=== PATIENT | male | born 1955 | race Caucasian/White ===

== ENCOUNTER → 2017-06-26 | Outpatient (CLI) | payer OTHER | LOC: BHFA 09:30 | PROVIDERS: ATTEND Internal Medicine Interventional Cardiology | DX: I25.10 Atherosclerotic heart disease of native coronary artery without angina pectoris (principal) | CPT/HCPCS: 78452; 93017; A9500; J2785 ==

== ENCOUNTER → 2017-10-15 | Outpatient (CLI) | payer OTHER | LOC: FIMAGING 18:47 | PROVIDERS: ATTEND Orthopaedic Surgery Hand Surgery | DX: M48.02 Spinal stenosis, cervical region (principal); G56.03 Carpal tunnel syndrome, bilateral upper limbs ==

== ENCOUNTER → 2017-12-01 | Outpatient (CLI) | payer OTHER | LOC: FIMAGING 16:18 | PROVIDERS: ATTEND Neurological Surgery | DX: M50.321 Other cervical disc degeneration at C4-C5 level (principal); Z98.1 Arthrodesis status ==

== ENCOUNTER → 2018-02-09 | Outpatient (CLI) | payer OTHER ==
[2018-02-09 11:39] LABS: PLATELET COUNT 126 10^3/uL (150-400)
--- NOTE | 2018-02-11 09:12 | CPEKG ---
Heart Rate: 91 RR Interval: 659 P-R Interval: 144 QRSD Interval: 92 QT Interval: 356 QTC Interval: 439 P [place]: 66 QRS [place]: 25 T Wave [place]: 19 EKG Severity - ABNORMAL ECG - EKG Impression: SINUS RHYTHM EKG Impression: INFERIOR INFARCT, AGE INDETERMINATE Electronically Signed For: Blake Jay 11-Feb-2018 09:13:21
== END ==
LOC: FPAT 11:00 → EDSTATUS 02-22 09:30
PROVIDERS: ATTEND Neurological Surgery
DX: Z01.810 Encounter for preprocedural cardiovascular examination (principal); Z01.812 Encounter for preprocedural laboratory examination

== ENCOUNTER 2018-03-23 09:29 | Inpatient (IN) | payer OTHER, MEDICAID ==
[2018-03-23] MEDS ORDERED: ASPIRIN 81 MG CHEWABLE TAB PO ONE ×2 (09:37→09:43)
--- NOTE | 2018-03-23 09:40 | EDPHY ---
H & P Time Seen by Provider: 03/23/18 09:36 HPI/ROS: Chief Complaint: Chest tightness, shortness of breath HPI: A 63-year-old male began having chest tightness about an hour ago with some associated shortness of breath and a headache. Patient states he woke up normal this morning. He does have a history of coronary disease and had a single cardiac stent placed about 10 years ago. Last was seen by his potato chip sorter within the last 3 months who performed a preop checkup for a yet to be planned neck surgery. Patient has been in his usual state of health. Patient states that the pain started after received a phone call from his civil attorney informing him that he had a court appointment at 9 o'clock this morning. He denies any fevers or chills. At worst a chest tightness is a 3/ 10. It was almost gone at this point. No aggravating or alleviating factors. Headache came on gradually, is not the worst headache of his life. No cough. Does not have a history of COPD or smoking cigarettes. ROS: 10 point Review of Systems is negative except as noted in the HPI. PMH: Head injury, coronary artery disease, hyperlipidemia, chronic neck and back pain Social History: No smoking, no alcohol, occasional marijuana Family History: Has a positive family history of coronary artery disease Physical Exam: Gen: Awake, Alert, anxious appearing, no respiratory distress HEENT: Nose: no rhinorrhea Eyes: PERRLA, EOMI Mouth: Moist mucosa Neck: Supple, no JVD Chest: nontender, lungs clear to auscultation Heart: S1, S2 normal, no murmur Abd: Soft, non-tender, no guarding Back: no CVA tenderness, no midline tenderness Ext: no edema, non-tender Skin: no rash Neuro: CN II-XII intact, Sensation grossly intact, Strength 5/5 in bilateral upper and lower extremities - Personal History Tetanus Vaccine Date: WITHIN 10 YRS - Medical/Surgical History Hx Diabetes: No Hx Cardiac Disease: Yes Other PMH: TBI, CAD, HIGH CHOLESTEROL, TX WITH STENT PLACEMENT, ORTHO SURG, PROSTATE SURG/TURP,occasional dental problems - Social History Smoking Status: Former smoker Constitutional: Initial Vital Signs Temperature (C) 37.0 C 03/23/18 09:30 Heart Rate 87 03/23/18 09:30 Respiratory Rate 18 03/23/18 09:30 Blood Pressure 153/87 H 03/23/18 09:30 O2 Sat (%) 91 L 03/23/18 09:30 O2 Delivery Mode Room Air O2 (L/minute) 2 Allergies/Adverse Reactions: No Known Allergies Allergy (Unverified 03/23/18 09:36) Home Medications: Medication Instructions Recorded Rosuvastatin Calcium [Crestor 10mg 10 mg PO DAILY 10/27/12 (RX)] Dextroamphetamine/Amphetamine 25 mg PO DAILY 08/18/14 [Adderall Xr 25 mg Capsule] Diazepam [Valium 10 MG (*)] 10 mg PO HS PRN 04/05/15 Herbals/Supplements -Info Only 1 ea PO DAILY 02/01/18 Multivitamins [Multivitamin (*)] 1 each PO DAILY 02/01/18 Omeprazole 40 mg PO DAILY18 02/01/18 Testosterone IM [Testosterone 4 ml IM MO 02/01/18 100mg/ml IM inj (*)] Tadalafil DAILY 02/02/18 Medical Decision Making - Diagnostics EKG Interpretation: ECG time 9:40 a.m., sinus rhythm with a rate of 77, there are Q-waves indicating an old inferior infarct, no acute ST or T-wave changes. Intervals are normal. The ECG is unchanged compared to February 09, 2018. ED Course/Re-evaluation: 63-year-old male with a history of coronary disease presenting with chest tightness and shortness of breath this morning. Patient is no acute changes on his ECG but does have evidence for old inferior infarction. He does have an elevation of his troponin which is not 3 times greater than reference range. This gives him a Heart Score of 4, 1.4 moderately suspicious history, 1 point for age, 1 point for 2 risk factors, and 1 point for elevated troponin which is not 3 times greater than the normal limit. Given the score of 4 he is appropriate for inpatient further evaluation workup for acute coronary syndrome. I have paged the hospitalist. He has received 325 mg of aspirin here. I have discussed with Swathi Alaniz, hospitalist. Will admit to the PCU under Dr. Noel for further evaluation. - Data Points Laboratory Results: Laboratory Results 03/23/18 09:45 03/23/18 09:45 03/23/18 03/23/18 09:45 09:45 WBC 7.06 10^3/uL 10^3/uL (3.80-9.50) RBC 3.56 10^6/uL L 10^6/uL (4.40-6.38) Hgb 12.2 g/dL L g/dL (13.7-17.5) Hct 36.5 % L % (40.0-51.0) MCV 102.5 fL H fL (81.5-99.8) MCH 34.3 pg H pg (27.9-34.1) MCHC 33.4 g/dL g/dL (32.4-36.7) RDW 13.3 % % (11.5-15.2) Plt Count 114 10^3/uL L 10^3/uL (150-400) MPV 11.6 fL fL (8.7-11.7) Neut % (Auto) 63.6 % % (39.3-74.2) Lymph % (Auto) 22.5 % % (15.0-45.0) Turner % (Auto) 10.3 % % (4.5-13.0) Eos % (Auto) 2.1 % % (0.6-7.6) Baso % (Auto) 1.1 % % (0.3-1.7) Nucleat RBC Rel Count 0.0 % % (0.0-0.2) Absolute Neuts (auto) 4.48 10^3/uL 10^3/uL (1.70-6.50) Absolute Lymphs (auto) 1.59 10^3/uL 10^3/uL (1.00-3.00) Absolute Monos (auto) 0.73 10^3/uL 10^3/uL (0.30-0.80) Absolute Eos (auto) 0.15 10^3/uL 10^3/uL (0.03-0.40) Absolute Basos (auto) 0.08 10^3/uL 10^3/uL (0.02-0.10) Absolute Nucleated RBC 0.00 10^3/uL 10^3/uL (0-0.01) Immature Gran % 0.4 % % (0.0-1.1) Immature Gran # 0.03 10^3/uL 10^3/uL (0.00-0.10) Sodium 143 mEq/L mEq/L (135-145) Potassium 4.1 mEq/L mEq/L (3.3-5.0) Chloride 107 mEq/L mEq/L (97-110) Carbon Dioxide 25 mEq/l mEq/l (22-31) Anion Gap 11 mEq/L mEq/L (8-16) BUN 20 mg/dL mg/dL (7-23) Creatinine 0.9 mg/dL mg/dL (0.7-1.3) Estimated GFR > 60 Glucose 104 mg/dL H mg/dL (70-100) Calcium 9.0 mg/dL mg/dL (8.5-10.4) Troponin I 0.089 ng/mL H ng/mL (0.000-0.034) Medications Given: Discontinued Medications Aspirin (Aspirin) 324 mg PO EDNOW ONE Stop: 03/23/18 09:38 Last Admin: 03/23/18 09:46 Dose: Not Given Aspirin (Aspirin) 243 mg PO EDNOW ONE Stop: 03/23/18 09:44 Last Admin: 03/23/18 09:45 Dose: 243 mg Departure - Departure Disposition: [facility] Inpatient Acute Clinical Impression: Chest pain Condition: Fair Referrals: Brittney Key MD [Primary Care Provider] - As per Instructions
--- NOTE | 2018-03-23 09:42 | CPEKG ---
Heart Rate: 77 RR Interval: 779 P-R Interval: 148 QRSD Interval: 90 QT Interval: 356 QTC Interval: 403 P [place]: 50 QRS [place]: -4 T Wave [place]: 8 EKG Severity - ABNORMAL ECG - EKG Impression: SINUS RHYTHM EKG Impression: INFERIOR INFARCT, AGE INDETERMINATE Electronically Signed By: Juan Antonio Harris 23-Mar-2018 14:40:51
[2018-03-23 09:52] LABS: PLATELET COUNT 114 10^3/uL (150-400)
[2018-03-23] MEDS ORDERED: LORazepam 2 MG/ML INJ IVP ONE (11:38)
[2018-03-23] MEDS ORDERED: LORazepam 2 MG/ML INJ ONE (11:40)
[2018-03-23] MEDS ORDERED: CARBOXYMETHYLCELLULOSE 1% 0.4 ML DROPERETTE EACHEYE PRN (14:16)
[2018-03-23] MEDS ORDERED: DIAZEPAM 10 MG TAB PO PRN (14:16)
--- NOTE | 2018-03-23 14:23 | PDGENHP ---
History and Physical History and Physical: CC: Chest pain HISTORY: This patient is sent for admission from the emergency room in [place], after presenting with chest pain and having a mild elevation of cardiac troponin. He has a history of myocardial infarction in 2006 with a stent placed at [facility] at that time by Dr. Lewis. It sounds like he has not had any angiogram since then. Notably he does continue to take aspirin and statin and does not use tobacco but some occasional marijuana. He tells me that he has been having now for few months some exertional angina symptoms with his typical chest discomfort and dyspnea mimicking his original [place] symptoms. This is a tightness in the chest radiating in the left arm with a vague abnormal sensation adjacent to the right side of his head. However this morning he had nonexertional and the that lasted quite a while. He presented eventually to [facility] Emergency room and was found to have a minimally elevated cardiac troponin and is sent here for further assessment. At this time his symptoms of angina have resolved. However he is feeling very anxious. He has had no changes in medication, no other recent illnesses or injuries. ROS: A comprehensive 10 system review revealed no other significant findings PAST MEDICAL HISTORY: Coronary disease with myocardial infarction and stent placement 2006 Anxiety disorder Erectile dysfunction FAMILY MEDICAL HISTORY: SOCIAL HISTORY: lives with his in [place] Is the martial artist No tobacco but occasional use of marijuana MEDICATIONS: The patients list has been reconciled by our clinical pharmacist in the EMR. Medicines the have held from his home list at this time for his acute episode include testosterone, Cialis, albuterol, Aleve, and some herbs PHYSICAL EXAMINATION: Vital Signs: All in normal range so far Commutator Repairer: Sinus Examination: General: alert, oriented, good mentation, relaxed Skin: warm, dry, good color, no rash HEENT: normal Neck: no mass or jvd Resps: relaxed Lungs: clear breath sounds Heart: regular, no murmur Abdomen: soft, nondistended, nontender, +BS, no mass Upper Extremities: normal Lower Extremities: no edema, warm No Bleeding or bruising Neurologic: normal speech/language, normal vaccinator, no focal weakness IV site: looks normal LABORATORY DATA: Mild macrocytic anemia with hemoglobin 12 otherwise unremarkable CBC 1st troponin 0.089, glucose 104 otherwise normal basic metabolic panel RADIOLOGY STUDIES: No studies done yet 12 LEAD EKG: My interpretation tracing, sinus rhythm, inferior Q-waves and nonspecific inferior T-wave abnormalities are noted, nothing that appears acute ASSESSMENT: # NSTEMI/UNSTABLE ANGINA WITH MILD TROPONIN ELEVATION # KNOWN HISTORY OF CORONARY ARTERY DISEASE WITH PREVIOUS STENTING # ANXIETY DISORDER PLANS: -observation status on Cardiac Unit -I reviewed his current situation with Dr. Hunter Lewis and Annie Shay at this time in detail -it seems that coronary angiography for further assessment will be prudent await Dr. Lewis assessment -he has had high-dose aspirin today will continue daily aspirin and statin at this time -depending on plans for angiography now or not, will consider adding beta- lizzie and heparin to keep things quite until he is study to -cardiac monitoring here I have reviewed the patient's case in detail with Dr. Annie Shay I have reviewed the patient's past medical records as part of this assessment, including
--- NOTE | 2018-03-23 15:19 | ASMTCMCOM ---
CM Note CM Note Notes: 03/23/2018 Case Management Note Reviewed chart. Pt was admitted for chest pain and subsequent work up. Pt is employed and has a significant other. There are no PT or OT evals ordered at this time. Case Management d/c poc: to be determined. Case Management to follow. Date Signed: 03/23/2018 03:18 PM Electronically Signed By:Talia Moreno RN
[2018-03-23] MEDS ORDERED: ACETAMINOPHEN 325 MG TAB PO PRN (15:46)
[2018-03-23] MEDS ORDERED: NITROGLYCERIN 0.4 MG BTL SL PRN (15:46)
[2018-03-23] MEDS ORDERED: TEMAZEPAM 15 MG CAP PO PRN (15:46)
--- NOTE | 2018-03-23 16:56 | GCON ---
[f rep st] CONSULTATION DATE OF CONSULTATION: 03/23/2018 REQUESTING PHYSICIAN: Dr. Gaston Noel. REASON FOR CONSULTATION: Unstable angina. HISTORY: The patient is a 63-year-old male, well known to me from over 10 years of outpatient care. He has a history of CAD with a prior inferior ST- segment elevation myocardial infarction in 2006 which was treated with PCI of the RCA. He has been stable since that time without recurrent ischemic episodes or need for repeat revascularization procedures. I last saw him in April of 2016. At that time, he was stable without significant symptoms. Today , he received an marketing professor phone call from his collections attorney who also happens to be his employer. He received a message regarding a court appointment scheduled for 9:00. Initially, he thought this was in relation to his work assignment. However, he soon realized that this was a court appointment regarding issues between himself and his ex-. He experienced a great deal of stress. He began to experience chest discomfort. When his symptoms persisted, he decided to seek evaluation in the emergency room. Eventually, his symptoms subsided spontaneously. In the ER, his initial ECG did not demonstrate any acute ischemic findings. His initial troponin is minimally elevated at 0.089. As I visit with him this afternoon, he is symptom free. PAST CARDIAC HISTORY AND TESTING: As mentioned, he had an inferior ST-segment elevation myocardial infarction in November of 2006. That episode of care took place at [facility]. His cardiac catheterization demonstrated overall preserved left ventricular systolic function. He had an acute thrombotic occlusion of the RCA which was treated with PCI and placement of a single 3.5 x 16 mm Taxus drug coated stent. He also had a chronic total occlusion of the proximal LAD with extremely vigorous [id number] and left-to- left collaterals. Approximately 1 month later, he underwent a repeat catheterization and attempt to perform PCI on the chronic total occlusion of the left anterior descending. That procedure was unsuccessful. In light of his asymptomatic status, the decision was made to manage him medically as opposed to sending him for bypass surgery. He has done extremely well. His last ischemic assessment consists of a Lexiscan nuclear stress test performed in June of 2017. That study demonstrated a fixed inferior defect and a moderate area of apical reversible ischemia. PAST MEDICAL HISTORY: In addition to his coronary disease, benign prostatic hypertrophy, depression, gastroesophageal reflux, hyperlipidemia, spinal stenosis, and traumatic brain injury. SURGICAL HISTORY: Includes cervical fusion, shoulder surgery, tonsillectomy, and TURP. FAMILY HISTORY: His father had coronary disease. MEDICATIONS: Please refer to the medication reconciliation section of the electronic chart. Relevant cardiac medications include aspirin and rosuvastatin. ALLERGIES: No known drug allergies. SOCIAL HISTORY: He is . He has a significant other with him in his room today. He has adult offspring. He is a former smoker, having stopped in 1989. He does not consume alcohol. REVIEW OF SYSTEMS: Apart from the chest discomfort that prompted this hospital encounter, a 10-point review was negative. PHYSICAL EXAMINATION: VITAL SIGNS: Heart rate in the 70s with sinus rhythm on the monitor. Blood pressure 125/83. GENERAL: This is a well-developed, well- nourished male in no acute distress. He is alert and oriented x3. HEAD AND NECK: No scleral icterus. Mucous membranes moist. Carotid pulses 2+ without bruits. There is no JVD. CHEST: Lung gamez clear to auscultation. CARDIAC: Regular rate and rhythm with a normal S1, S2. There is no murmur or gallop. ABDOMEN: Soft, nontender, nondistended, with normal bowel sounds. EXTREMITIES : 2+ pulses and no peripheral edema. An Nicolas test on the right wrist was normal at less than 5 seconds. LABORATORY STUDIES: Sodium 143, potassium 4.1, BUN and creatinine 20 and 0.9. Troponin is 0.089. His CBC demonstrates a white blood cell count of 7.06 with hemoglobin and hematocrit of 12.2 and 36.5. Platelet count is 114,000. ECG: His ECG demonstrates normal sinus rhythm. There are inferior Q-waves, consistent with his previous [place]. There are no conduction system disturbances. There are no ST-T-wave changes suggestive of ischemia. IMPRESSION: This is a 63-year-old male who presents with acute onset anginal quality chest discomfort that arose in the context of emotional upset. He is currently pain free. His ECG does not demonstrate any acute ischemic changes. However, his troponin is minimally elevated. He has not had a repeat heart catheterization since his original presentation in 2006. Over the years, nuclear stress tests have demonstrated his fixed inferior infarct zone, along with a focus of apical ischemia, likely related to his collateralized left anterior descending. PLAN: The patient will be observed overnight. He will have serial troponin levels. At this point, the plan is to proceed with diagnostic cardiac catheterization and possible PCI tomorrow. /[id number]/MODL MTDD
[2018-03-23] MEDS: PANTOPRAZOLE SODIUM 40 MG TAB PO SCH (17:53)
[2018-03-23] MEDS ORDERED: NON-FORMULARY NEW DRUG (Omeprazole [Omeprazole] 40 MG) PO SCH (18:00)
[2018-03-23] MEDS: DIAZEPAM 5 MG TAB PO PRN (22:32)
[2018-03-24] MEDS ORDERED: diphenhydrAMINE 25 MG CAP PO ONE ×2 (06:00→10:18)
[2018-03-24] MEDS ORDERED: DIAZEPAM 5 MG TAB PO ONE (06:00)
[2018-03-24] MEDS ORDERED: FAMOTIDINE 20 MG TAB PO ONE (06:00)
--- NOTE | 2018-03-24 09:06 | CPEKG ---
Heart Rate: 69 RR Interval: 870 P-R Interval: 148 QRSD Interval: 90 QT Interval: 396 QTC Interval: 425 P [place]: 50 QRS [place]: -2 T Wave [place]: 11 EKG Severity - ABNORMAL ECG - EKG Impression: SINUS RHYTHM EKG Impression: INFERIOR INFARCT, AGE INDETERMINATE Electronically Signed By: Howard Ford 24-Mar-2018 11:58:00
[2018-03-24] MEDS ORDERED: DIAZEPAM 5 MG TAB ONE (10:19)
[2018-03-24] MEDS ORDERED: FAMOTIDINE 20 MG TAB ONE (10:19)
[2018-03-24] MEDS: ASPIRIN 81 MG CHEWABLE TAB PO SCH (10:21)
[2018-03-24] MEDS ORDERED: LIDOCAINE 1% 300 MG/30 ML SDV ONE (10:56)
[2018-03-24] MEDS ORDERED: MIDAZOLAM 2 MG/2 ML VIAL ONE ×2 (10:57→13:11)
[2018-03-24] MEDS ORDERED: IOPAMIDOL (ISOVUE-370) 150 ML BTL IV ONE (10:57)
[2018-03-24] MEDS ORDERED: VERAPAMIL 5 MG/2 ML VIAL ONE (10:57)
[2018-03-24] MEDS ORDERED: fentaNYL 100 MCG/2 ML INJ ONE (10:57)
[2018-03-24] MEDS ORDERED: HEPARIN 10,000 UNIT/10 ML MDV (1,000 UNIT/ML) ONE (10:57)
--- NOTE | 2018-03-24 12:43 | PDHPUP ---
History & Physical Update H&P update statement: This history and physical update is based on an assessment of the patient which was completed after admission or registration (within 24 hours), but prior to the surgery/procedure. H&P update: H&P reviewed & patient examined, no change in patient's condition since H&P completed
--- NOTE | 2018-03-24 12:43 | PDPROPOC ---
Sedation Plan of Care Sedation Plan of Care: vital signs stable, mental status noted, patient educated of risks, benefits, alternatives, patient can tolerate sedation ASA Classification: ASA 2 Planned drugs: fentanyl, midazolam Mallampati Score: Class 2 Mallampati Reference Image: Patient passed 3-3-2 rule?: Yes
[2018-03-24] MEDS ORDERED: HYDROCODONE/APAP 5/325 TAB PO PRN (14:13)
[2018-03-24] MEDS ORDERED: ATROPINE SULFATE 1 MG/10 ML SYR IVP PRN (14:13)
[2018-03-24] MEDS ORDERED: ONDANSETRON 4 MG/2 ML VIAL IVP PRN (14:13)
--- NOTE | 2018-03-24 14:21 | PDDXCAT ---
Diagnostic Cath Note - . Date: 03/24/18 Front End Engineer: Joshua Indication: other (1)Unstable angina with mild troponin eleavation. 2) Known CAD.) - Procedure Access: right wrist Procedure: left heart catheterization, coronary angiography, left ventriculogram , other (Attemtped PCI of RCA) - Materials Left Heart Cath size: 5F Left Heart Cath materials: other (TIG and Pigtail) - Findings-Left Heart Catheterization LM: Normal. LAD: Mid-LAD 100% with kwfy-tr-ally collaterals. LCX: Mid-circumflex 50%. RCA: Flouroscopy reveals the presence of a previously placed stent in the proximal RCA. Angiography demonstrates the stent is widely patent. There is diffuse mild to moderate plaque throughout the RCA. The ostium of the posterior descending branch has a focal 90+% stenosis. LVEF: 50% Wall motion: Inferobasilar akinesis. Estimated blood loss: <50ml Closure method: TR Band Assessment: 1) Low normal LVEF with inferobasilar akinesis from [place] in 2006. 2) CAD as described above. Plan: Will ask CT surgery service to consult for CABG. Intervention: Based on the patient's clinical history and diagnostic angiography, the decision was made to attempt PCI of the ostial stenosis in the posterior descending branch. The patient received 2500 units of intravenous heparin in addition to the 5,000 units that had been given at the beginning of the procedure. A 6 Indian HockeyStick guide catheter was advanced to the RCA ostium. Multiple attempts were made at passing a guidewire into the posterior descending branch. An Intuition guidewire and Run-Through guidewire were both tried with reshaping of the tip of the wire several times each. The posterior descending branch could not be accessed and the procedure was terminated. Patient Problems: Problems Problem Status Onset Chest pain Acute
--- NOTE | 2018-03-24 15:56 | ASMTCMCOM ---
CM Note CM Note Notes: 03/24/2018 Case Management Note Discussed pt during rounds this morning. Pt has heart cath this afternoon that found significant blockages that they were unable to stent. Dr. Carlisle to see pt to discuss surgical options for treatment. Case Management d/c poc: to be determined. Case Management to follow. Date Signed: 03/24/2018 03:55 PM Electronically Signed By:Talia Moreno RN
[2018-03-24] MEDS: VITAMIN B COMPLEX 1 EA CAP/TAB PO SCH (16:22)
[2018-03-24] MEDS: FOLIC ACID 1 MG TAB PO SCH (16:22)
[2018-03-24] MEDS: MULTIVITAMINS 1 EACH TAB PO SCH (16:22)
[2018-03-24] MEDS: GLUCOSAMINE/CHONDROITIN CAP PO SCH (16:22)
[2018-03-24] MEDS: OMEGA-3 FATTY ACIDS 1,000 MG CAP PO SCH (16:22)
[2018-03-24] MEDS: ROSUVASTATIN CALCIUM 10 MG TAB PO SCH (16:22)
--- NOTE | 2018-03-24 18:01 | HOSPPROG ---
Hospitalist Progress Note Assessment/Plan: DIAGNOSES: -NSTEMI -CAD with progression noted on angiography, multiple vessels involved -unable to pass stent through ostial lesion in the manufacturing laborer today -mild macrocytic anemia on CBC I reviewed with Dr. Lewis in detail after angiography. The patient has significant myocardium at risk but technically could not be stented today in the manufacturing laborer. There actually is anatomy potentially amenable to with triple bypass surgery so the current plan is to obtain surgical consultation at this time. I reviewed the case with Dr. Henriquez as well and he will see the patient this evening PLANS: -continue aspirin and statin -consultation with Dr. Hunter Henriquez of surgery -will check B12 and folate levels with his anemia SUBJECTIVE: No recurrent angina here today so far No shortness of breath No other new symptoms OBJECTIVE Vitals reviewed: Stable overall here so far Canvas Worker, my review: Sinus rhythm Exam: alert oriented skin warm dry color ok resps not labored lungs clear BSs heart regular abd soft nondistended nontender, bowel sounds present limbs warm, no edema iv site ok Lab data: He has adequate control of his LDL in the 50s Objective: Vital Signs Temp Pulse Resp BP Pulse Ox 36.2 C 73 15 125/82 H 90 L 03/24/18 07:38 03/24/18 16:00 03/24/18 16:00 03/24/18 16:00 03/24/18 16:00 Laboratory Results 03/24/18 03:27 03/23/18 03/24/18 03/25/18 06:59 06:59 06:59 Intake Total 720 Balance 720 - Time Spent With Patient Time Spent with Patient: greater than 35 minutes Time Spent with Patient: Greater than 35 minutes spent on this patients care, greater than 50% of time spent counseling, educating, and coordinating care regarding the above mentioned plan. ICD10 Worksheet Patient Problems: Problems Problem Status Onset Chest pain Acute
--- NOTE | 2018-03-24 18:27 | GCON ---
[f rep st] CONSULTATION DATE OF CONSULTATION: 03/24/2018 REFERRING PHYSICIAN: Hunter Lewis MD REASON FOR CONSULTATION: Patient is seen at the request of Dr. Lewis with the patient's becky n. IMPRESSION: 1. Non-Q-wave infarction with severe 3-vessel disease and moderate LV dysfunction. 2. Anxiety disorder. 3. Erectile dysfunction. RECOMMENDATIONS: This gentleman should undergo coronary artery revascularization on this admission. He has unstable angina with mild elevation of troponin on admission. He was found to have severe 3- vessel disease at cath today. Please see cath report. Previous medical history is positive for cherelle te myocardial infarction in 2006, at which time, he had a stent. He does have a strong family histor y and denies any other significant risk factors. REVIEW OF SYSTEMS: Otherwise unremarkable. SOCIAL HISTORY: He works in security. He is , or has a partner whom he lives with in [facility]. He does not smoke. MEDICATIONS: On admission: Please see admission H and P for medications. PHYSICAL EXAMINATION: GENERAL: This is a well-developed, middle-aged gentleman lying comfortably in bed post cath. No apparent distress. HEENT: Normocephalic. PERRLA. EOMI. NECK: Without bruit, adenopathy, thyromegaly. HEART: Rate is regular without murmur, S3 or S4. LUNGS: Clear. ABDOMEN : Soft, nontender. Bowel sounds are active. RECTAL/GENITAL: Exams were deferred. NEUROLOGICAL: He is grossly intact. Moves all extremities to command. Pedal pulses are 2+ and symmetrical. DIAGNOSTICS: Please see cath report for details. Carotid studies are pending. PLAN: Proceed with coronary bypass grafting in the morning. /[id number]/MODL
[2018-03-24] MEDS: PANTOPRAZOLE SODIUM 40 MG TAB PO SCH (19:11)
--- NOTE | 2018-03-24 20:40 | PDMN ---
Medical Necessity Medical necessity: Pt meets INPT criteria per MD as of 03/24/18 and MCG M-[id number] [place] (NSTEMI with severe 3-vessel disease; CABG pending).
[2018-03-24] MEDS: CHLORHEXIDINE GLUC HIBICLENS 118 ML BTL TP SCH (20:45)
[2018-03-24] MEDS: DIAZEPAM 5 MG TAB PO PRN (23:29)
[2018-03-25] MEDS ORDERED: SODIUM BICARBONATE 20 MEQ, LIDOCAINE 1% 10 ML in NORMOSOL-R 1,000 ML MISC ONE (06:00)
[2018-03-25] MEDS ORDERED: MUPIROCIN 2% 22 GM OINT NS ONE (06:00)
[2018-03-25] MEDS ORDERED: ceFAZolin 2 GM/DEXTROSE 100 ML IV ONE (06:00)
[2018-03-25] MEDS ORDERED: MANNITOL 25% 12.5 GM/50 ML VIAL IVP ONE (06:00)
[2018-03-25] MEDS ORDERED: AMINOCAPROIC ACID 5 GM/20 ML VIAL IV ONE (06:00)
[2018-03-25] MEDS ORDERED: CITRATE DEXTROSE SOLN 500 ML BAG MISC ONE (06:00)
[2018-03-25] MEDS ORDERED: INSULIN REGULAR HUMAN 100 UNIT in NS 100 ML IV ONE (06:00)
[2018-03-25] MEDS ORDERED: PHENYLEPHRINE HCL 50 MG in NS 250 ML IV ONE (06:00)
[2018-03-25] MEDS ORDERED: VERAPAMIL 5 MG, NITROGLYCERIN 2.5 MG, HEPARIN 500 UNIT, SODIUM BICARBONATE 0.2 MEQ in L... MISC ONE (06:00)
[2018-03-25] MEDS ORDERED: niCARdipine/NACL 200 ML IV SCH (06:00)
[2018-03-25] MEDS ORDERED: NOREPINEPHRINE BITARTRATE 16 MG in NS 250 ML IV ONE (06:00)
[2018-03-25] MEDS ORDERED: PROTAMINE SULFATE 50 MG/5 ML VIAL IVP ONE (06:27)
[2018-03-25] MEDS ORDERED: MILRINONE/DEXTROSE/100 ML BAG IV ONE (06:28)
[2018-03-25] MEDS ORDERED: HEPARIN 10,000 UNIT/10 ML MDV (1,000 UNIT/ML) ONE ×2 (06:28→06:30)
[2018-03-25] MEDS ORDERED: DOPamine/DEXTROSE/250 ML BAG IV ONE (06:28)
[2018-03-25] MEDS ORDERED: NA BICARBONATE 50 MEQ/50 ML VIAL ONE (06:28)
[2018-03-25] MEDS ORDERED: CALCIUM CHLORIDE 1 GM/10 ML INJ ONE ×2 (06:28→06:30)
[2018-03-25] MEDS ORDERED: ADENOSINE 6 MG/2 ML VIAL ONE (06:29)
[2018-03-25] MEDS ORDERED: AMIODARONE HCL 150 MG/3 ML VIAL ONE ×2 (06:29→06:31)
[2018-03-25] MEDS ORDERED: ceFAZolin 1 GM VIAL ONE (06:29)
[2018-03-25] MEDS ORDERED: NITROGLYCERIN/D5W 50 MG/250 ML BOTTLE IV ONE (06:29)
[2018-03-25] MEDS ORDERED: niCARdipine/NACL/200 ML BAG IV ONE (06:29)
[2018-03-25] MEDS ORDERED: LIDOCAINE 2% 100 MG/5 ML SYR ONE (06:30)
[2018-03-25] MEDS ORDERED: ALBUMIN 5% 250 ML BOTTLE IV ONE (06:30)
[2018-03-25] MEDS ORDERED: methylPREDNISolone SOD SUCC 1 GM/8 ML VIAL ONE (06:31)
[2018-03-25] MEDS ORDERED: CITRATE DEXTROSE SOLN 500 ML BAG ONE (06:31)
[2018-03-25] MEDS ORDERED: MAGNESIUM SULFATE 1 GM/2 ML VIAL ONE (06:31)
[2018-03-25] MEDS ORDERED: VERAPAMIL 5 MG/2 ML VIAL ONE (06:43)
[2018-03-25] MEDS ORDERED: PAPAVERINE HCL 60 MG/2 ML SDV ONE (06:43)
[2018-03-25] MEDS ORDERED: MINERAL OIL 10 ML VIAL ONE (06:43)
[2018-03-25] MEDS ORDERED: LR 1,000 ML IV ONE (06:44)
[2018-03-25] MEDS ORDERED: MIDAZOLAM 2 MG/2 ML VIAL IVP ONE (06:54)
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
[2018-03-25] MEDS ORDERED: fentaNYL 250 MCG/5 ML INJ ONE ×2 (07:09→10:02)
[2018-03-25] MEDS ORDERED: PROPOFOL/EMULSION 500 MG/50 ML BOTTLE IV ONE (07:10)
[2018-03-25] MEDS ORDERED: fentaNYL 100 MCG/2 ML INJ ONE ×3 (07:46→12:09)
[2018-03-25] MEDS ORDERED: DEXMEDETOMIDINE HCL 400 MCG in NS 100 ML IV ONE (12:00)
[2018-03-25] MEDS ORDERED: fentaNYL 100 MCG/2 ML INJ IVP PRN (12:26)
[2018-03-25] MEDS ORDERED: MEPERIDINE 25 MG/0.5 ML AMP IVP PRN (12:26)
[2018-03-25] MEDS ORDERED: CEPACOL LOZENGE PO PRN (12:26)
[2018-03-25] MEDS ORDERED: ONDANSETRON DISINTEGRATING 4 MG TAB PO PRN (12:26)
[2018-03-25] MEDS ORDERED: ACETAMINOPHEN 325 MG TAB PO PRN (12:26)
[2018-03-25] MEDS ORDERED: PANTOPRAZOLE SODIUM 40 MG VIAL IVP ONE (12:26)
[2018-03-25] MEDS ORDERED: METOCLOPRAMIDE 10 MG/2 ML VIAL IVP PRN (12:26)
[2018-03-25] MEDS ORDERED: ACETAMINOPHEN 650 MG SUPP PR PRN (12:26)
[2018-03-25] MEDS ORDERED: MAGNESIUM SULF 2 GM/WATER 50 ML IV ONE (12:26)
[2018-03-25] MEDS ORDERED: POTASSIUM Cl (KCl) 50 ML IV PRN (12:26)
[2018-03-25] MEDS ORDERED: POLYETHYLENE GLYCOL 3350 17 GM PKT PO PRN (12:26)
[2018-03-25] MEDS ORDERED: D50W 25 GM/50 ML SYR IVP PRN (12:26)
[2018-03-25] MEDS ORDERED: BISACODYL 10 MG SUPP PR PRN (12:26)
[2018-03-25] MEDS ORDERED: MAGNESIUM HYDROXIDE 30 ML UDCUP PO PRN (12:26)
[2018-03-25] MEDS ORDERED: SODIUM CL NASAL 45 ML BTL EACHNARE PRN (12:26)
[2018-03-25] MEDS ORDERED: ALBUMIN 5% 250 ML IV PRN (12:26)
[2018-03-25] MEDS ORDERED: LACTULOSE 20 GM/30 ML UDCUP PO PRN (12:26)
[2018-03-25] MEDS ORDERED: ONDANSETRON 4 MG/2 ML VIAL IVP PRN (12:26)
[2018-03-25] MEDS ORDERED: NS 1,000 ML IV SCH (12:30)
[2018-03-25] MEDS ORDERED: INSULIN REGULAR HUMAN 100 UNIT in NS 100 ML IV SCH (12:30)
[2018-03-25] MEDS ORDERED: PROPOFOL 200 MG/20 ML VIAL ONE (12:31)
[2018-03-25] MEDS ORDERED: SODIUM BICARBONATE 50 MEQ/50 ML SYR ONE (13:02)
[2018-03-25] MEDS ORDERED: LORazepam 2 MG/ML INJ ONE (13:12)
--- NOTE | 2018-03-25 13:13 | CPEKG ---
Heart Rate: 94 RR Interval: 638 P-R Interval: 144 QRSD Interval: 96 QT Interval: 368 QTC Interval: 461 P [place]: 72 QRS [place]: 67 T Wave [place]: 28 EKG Severity - ABNORMAL ECG - EKG Impression: SINUS RHYTHM EKG Impression: PROBABLE INFERIOR INFARCT, AGE INDETERMINATE Electronically Signed By: Howard Ford 25-Mar-2018 13:55:55
[2018-03-25] MEDS: FOLIC ACID 1 MG TAB PO SCH (13:20)
[2018-03-25] MEDS: ASPIRIN 81 MG CHEWABLE TAB PO SCH (13:20)
[2018-03-25] MEDS: ROSUVASTATIN CALCIUM 10 MG TAB PO SCH (13:21)
[2018-03-25] MEDS: OMEGA-3 FATTY ACIDS 1,000 MG CAP PO SCH (13:21)
[2018-03-25] MEDS: VITAMIN B COMPLEX 1 EA CAP/TAB PO SCH (13:21)
[2018-03-25] MEDS: MULTIVITAMINS 1 EACH TAB PO SCH (13:21)
[2018-03-25] MEDS: GLUCOSAMINE/CHONDROITIN CAP PO SCH (13:21)
--- NOTE | 2018-03-25 13:37 | GOP ---
[f rep st] OPERATIVE REPORT DATE OF OPERATION: 03/25/2018 SURGEON: Hunter Carlisle DO TRANSFORMER [employer]OP SUPERVISOR: Coby. ANESTHESIA: Arnold. PREOPERATIVE DIAGNOSIS: Non-Q-wave infarction with severe 3-vessel disease, moderate left ventricula r dysfunction. POSTOPERATIVE DIAGNOSIS: Non-Q-wave infarction with severe 3-vessel disease, moderate left ventricul ar dysfunction with evidence of severe mitral insufficiency with what appears to be A3 P3 prolapse. PROCEDURE PERFORMED: 1. Coronary bypass grafting x5 with the left internal mammary artery to the ramus, right internal ma mmary artery to the left anterior descending, saphenous vein graft to the 1st diagonal, saphenous vei n graft to the posterior lateral circumflex, and saphenous vein graft to the posterior descending art olvin. 2. Atrial clip to the left atrial appendage. 3. Complex mitral valve repair with advancement of the lateral commissure utilizing "Magic Stitch" a nd a #32 Physio annuloplasty ring. FINDINGS: Patient was noted to have unstable angina with troponin elevation. He underwent diagnosti c catheterization and noted to have severe 3-vessel disease. Please see cath report. Ventriculogram did not reveal any clear evidence of mitral insufficiency and no history of the same was noted. Intraoperatively, his transesophageal echo revealed moderate to severe mitral insufficiency with an a nteriorly directed jet likely emanating from A3 P3 commissure. There was also evidence of myxomatous valve degeneration and annular dilatation. I then obtained verbal consent from the patient's to proceed with repairing the mitral valve. DESCRIPTION OF PROCEDURE: Both mammaries were harvested. He was then heparinized, cannulated. Bypa ss was begun. A cardioplegic arrest was obtained with antegrade cardioplegia, retrograde cardioplegi a topical hypothermia, and systemic cooling. Initially, the left atrial appendage was ligated with a 35 mm atrial clip. We then proceeded with gr afting a 2.5 mm good quality posterolateral circumflex with as excellent vein graft, which was harves nica endoscopically from the left leg by Jamarcus Tenorio, who first assisted throughout the procedure. Th e proximal anastomosis was completed in the standard fashion. We then proceeded with grafting the ramus branch, which was a 2.5 mm good quality vessel with an exce llent quality left internal mammary artery brought through a lateral pericardial incision. This was tacked to the epicardium. We then proceeded with grafting the 1st large diagonal, which was a 2.4 mm vessel with excellent qual ity vein, which was brought off the ascending aorta. We then proceeded with grafting the PDA, which was a 2.8 mm vessel with excellent quality vein, savin g the proximal anastomosis until after completion of the mitral valve. We then exposed the mitral valve through the right superior pulmonary vein. The atrium was markedly enlarged. The valve appeared myxomatous and with distention had marked prolapse of the lateral commi ssure at A3 P3. There were no ruptured chordae and there appeared to be annular dilatation. Annulop lasty sutures were placed with 2-0 Tycron. We then retested the valve. We then performed two 5-0 Pr olene sutures at the lateral commissure to advance the commissure and reduce the prolapse and regurgi tation laterally. This did not compromise in-flow and upon distention, the regurgitation resolved. We then sized the patient for a 32 ring, which was sutured in place with Cor-Knots, again eliminating any regurgitation. The left atrium was closed in standard fashion. We then proceeded with doing the proximal right anastomosis off the ascending aorta and then brought the right internal mammary artery across the midline to the mid LAD without tension and grafted that there. Cross-clamp was then removed with suction on the ascending aortic vent. Spontaneous cardiac activity was noted to resume. The patient was easily weaned from bypass. Heparin was reversed with protamine. The cannula was removed and oversewn. Transesophageal echo confirmed no mitral regurgita tion with good coaptation and function and normal tricuspid. 2 ventricular pacing wires were placed. The thymic fat and pericardium were closed. Two pleural and 1 mediastinal drains were placed. The chest was closed in standard fashion. Patient was returned to ICU in stable condition. /[id number]/MODL
[2018-03-25] MEDS ORDERED: LORazepam 2 MG/ML INJ IV ONE ×2 (13:45)
[2018-03-25] MEDS ORDERED: SODIUM BICARBONATE 50 MEQ/50 ML SYR IV ONE (13:45)
[2018-03-25] MEDS ORDERED: HEPARIN 5,000 UNIT/0.5 ML INJ SC SCH (14:00)
[2018-03-25] MEDS: ceFAZolin 2 GM/DEXTROSE 100 ML IV SCH ×2 (14:06→21:35)
--- NOTE | 2018-03-25 14:45 | POSTANESTH ---
Post Anesthetic Evaluation Cardiovascular Status: Normal, Stable Respiratory Status: Requires Airway Assist Level of Consciousness/Mental Status: Moderately Sleepy Pain Control: Adequate, Prn Tx Ordered Nausea/Vomiting Control: Adequate, Prn Tx Ordered Complications Possibly Related to Anesthesia: None Noted
[2018-03-25] MEDS: PANTOPRAZOLE SODIUM 40 MG TAB PO SCH ×2 (17:44→21:18)
--- NOTE | 2018-03-25 17:56 | HOSPPROG ---
Hospitalist Progress Note Assessment/Plan: Patient seen by me today postoperatively in ICU. DIAGNOSES: -NSTEMI/CAD with progression noted on angiography, multiple vessels involved -now status post CABG x5 and mitral and tricuspid valve annuloplasty is -mild macrocytic anemia on CBC I reviewed with Dr. Lewis in detail after angiography. 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 There actually is anatomy potentially amenable to with triple bypass surgery so the current plan is to obtain surgical consultation at this time. I reviewed the case with Dr. Henriquez as well and he will see the patient this evening PLANS: -routine postop care per Cardiac surgery -B12 and folate levels are pending to further assess macrocytosis SUBJECTIVE: He is having the expected pain after surgery but otherwise doing well. No nausea. Breathing comfortably. He has had a stable postoperative course so far. 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, my review: Sinus rhythm Exam: alert oriented Looks to be in some degree of discomfort but in no distress skin warm dry color ok resps not labored Incision looks good, chest tubes in place with minimal output lungs slightly rhonchorous heart regular abd soft nondistended nontender, bowel sounds present limbs warm, no edema iv site ok Lab data: He has adequate control of his LDL in the 50s Objective: Vital Signs Temp Pulse Resp BP Pulse Ox 35.7 C L 89 24 H 122/57 H 89 L 03/25/18 16:00 03/25/18 17:00 03/25/18 17:00 03/25/18 17:00 03/25/18 17:00 Laboratory Results 03/24/18 03:27 03/24/18 03/25/18 03/26/18 06:59 06:59 06:59 Intake Total 720 Balance 720 ICD10 Worksheet Patient Problems: Problems Problem Status Onset Acute blood loss anemia Acute CAD (coronary artery disease) Acute Chest pain Acute Mitral valve regurgitation Acute S/P CABG x 5 Acute S/P mitral valve repair Acute
[2018-03-25] MEDS: CHLORHEXIDINE GLUC HIBICLENS 118 ML BTL TP SCH (19:45)
[2018-03-25] MEDS: MUPIROCIN 2% 22 GM OINT NS SCH (20:36)
[2018-03-25] MEDS: SENNOSIDES/DOCUSATE SODIUM TAB PO SCH (21:06)
[2018-03-25] MEDS ORDERED: NALOXONE HCL 0.4 MG/ML INJ IVP PRN (22:05)
[2018-03-25] MEDS ORDERED: HYDROmorphONE/DILAUDID 6 MG/30 ML PCA IV PRN (22:05)
[2018-03-25] MEDS ORDERED: KETOROLAC 30 MG/1 ML SDV IVP ONE (22:15)
[2018-03-26 03:07] LABS: PLATELET COUNT 98 10^3/uL (150-400)
[2018-03-26 03:19] LABS: INR 1.22 (0.83-1.16); PROTIME(PATIENT) 15.6 SEC (12.0-15.0)
--- NOTE | 2018-03-26 06:15 | SOAPPROG ---
SOAP Progress Note Assessment/Plan: Assessment: POD#1 urgent CABG x 5 (ESQUEDA-RI, ABBY-LAD, SV-D1, SV-PLC, SV-PDA), EVH , complex MV repair with a #32 Physio ring NSTEMI/progressive CAD - Patent RCA stent, unsuccessful PCI culprit PDA stenosis. Fully revascularized with CABG. Secondary prevention w ASA, BB as tolerated, and statin when eating well. ISCM - s/p remote inferobasilar NC. LVEF ~50%. Hemodynamically stable early postop course. No vasoactive support. No dysrhythmias. No sig volume overload. Staggered intro of heart failure meds as appropriate. 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 Antithrombotic prophylaxis with Coumadin, target INR 2-3, duration 3 mo. Acute on chronic anemia - Preop H/H . Expected surgical blood loss. No transfusions required. VTE prophylaxis with SQ hep until INR > 1.7. Postoperative pain - Exacerbated by BIMAs, bilat pleural tubes. Postop management with dilaudid HAND STITCHER. Transition to multimodal analgesia planned. Anticipate improved control once tubes out. Plan: Routine POD#1 orders re wires, drains, orals and mobility. Transition dilaudid HAND STITCHER to oral and bolus dilaudid prn. Start metoprolol 12.5 mg BID. Start coumadin 2.5 mg today. Probable tx to PCU later today. 03/26/18 06:19 Subjective: Hurts to move, hurts to talk. No dizziness or wobbliness getting OOB. No nausea. Objective: Vital Signs Temp Pulse Resp BP Pulse Ox 36.8 C 85 16 144/58 H 94 03/26/18 04:00 03/26/18 05:00 03/26/18 05:00 03/26/18 05:00 03/26/18 05:00 Laboratory Results 03/26/18 03:00 03/26/18 03:00 03/25/18 03/26/18 03/27/18 05:59 05:59 05:59 Intake Total 218.2 Output Total 1835 Balance -1616.8 PT 15.6 SEC (12.0-15.0) H 03/26/18 03:00 INR 1.22 (0.83-1.16) H 03/26/18 03:00 Extubated yest afternoon without incident. Moderate suppl O2 req sec to splinting. Started on dilaudid HAND STITCHER. Adequate diuresis. CTOP thinning and dissipating. CXR -> no PTX, no undrained effusions, mild pulm vasc congestion. Labs as expected. Physical Exam - Physical Exam General Appearance: alert, mild distress (cooperating with exam) Respiratory: crackles (left sided), other (blakes x 3 y-d to pleurovac, serosang drainage, no air leak) Cardiac/Chest: regular rate, rhythm, friction rub, other (Sternotomy CDI. TCPWs intact.) Abdomen: soft, other (hypoactive BS) Skin: warm/dry Extremities: swelling (1+ gen), other (LLE venotomy CDI) ICD10 Worksheet Patient Problems: Problems Problem Status Onset Acute blood loss anemia Acute CAD (coronary artery disease) Acute Chest pain Acute Mitral valve regurgitation Acute S/P CABG x 5 Acute S/P mitral valve repair Acute
[2018-03-26] MEDS: ceFAZolin 2 GM/DEXTROSE 100 ML IV SCH ×3 (06:25→22:18)
[2018-03-26] MEDS: HEPARIN 5,000 UNIT/0.5 ML INJ SC SCH ×3 (06:29→19:51)
[2018-03-26] MEDS ORDERED: HYDROmorphONE/DILAUDID 1 MG/ML INJ IVP PRN (07:22)
[2018-03-26] MEDS: METOPROLOL TARTRATE 25 MG TAB PO SCH ×2 (07:50→21:24)
[2018-03-26] MEDS: ASPIRIN 81 MG CHEWABLE TAB PO SCH (07:50)
[2018-03-26] MEDS: SENNOSIDES/DOCUSATE SODIUM TAB PO SCH ×2 (07:50→21:25)
[2018-03-26] MEDS: HYDROmorphONE/DILAUDID 2 MG TAB PO PRN ×4 (07:50→23:35)
[2018-03-26] MEDS: MUPIROCIN 2% 22 GM OINT NS SCH ×2 (07:51→21:30)
--- NOTE | 2018-03-26 15:46 | ASMTCMCOM ---
CM Note CM Note Notes: Patient had an urgent CABGx5 as a result of severe 3 vessel disease. OT/PT ordered. PT is recommending home care. CM will continue to monitor as recommendations come in. Dr. Carlisle may have recommendations as well. CM will follow. Date Signed: 03/26/2018 03:45 PM Electronically Signed By:Amber Bangura LCSW
[2018-03-26] MEDS ORDERED: NS 1,000 ML IV ONE (19:00)
[2018-03-26] MEDS ORDERED: WARFARIN SODIUM 2.5 MG TAB PO ONE (21:00)
[2018-03-26] MEDS: HYDROCODONE/APAP 5/325 TAB PO PRN (21:25)
[2018-03-27] MEDS: HYDROCODONE/APAP 5/325 TAB PO PRN ×2 (03:02→19:13)
[2018-03-27] MEDS: HYDROmorphONE/DILAUDID 2 MG TAB PO PRN ×2 (05:39→10:25)
[2018-03-27 05:47] LABS: INR 1.28 (0.83-1.16); PROTIME(PATIENT) 16.2 SEC (12.0-15.0)
[2018-03-27] MEDS: HEPARIN 5,000 UNIT/0.5 ML INJ SC SCH ×3 (06:29→19:51)
--- NOTE | 2018-03-27 07:28 | SOAPPROG ---
SOAP Progress Note Assessment/Plan: Assessment: POD#2 urgent CABG x 5 (ESQUEDA-RI, ABBY-LAD, SV-D1, SV-PLC, SV-PDA), EVH , complex MV repair with a #32 Physio ring NSTEMI/progressive CAD - Patent RCA stent, unsuccessful PCI culprit PDA stenosis. Fully revascularized with CABG. Secondary prevention w ASA, BB, and statin when eating well. ISCM - s/p remote inferobasilar PR. LVEF ~50%. Hemodynamically stable early postop course. No vasoactive support. No dysrhythmias. No sig volume overload. Staggered intro of heart failure meds as appropriate. 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 Antithrombotic prophylaxis with Coumadin, target INR 2-3, duration 3 mo. Acute on chronic anemia - Preop H/H . Expected surgical blood loss. No transfusions required. VTE prophylaxis with SQ hep until INR > 1.7. Postoperative pain - Exacerbated by BIMAs, bilat pleural tubes, and probable pericarditis. Postop management with multimodal analgesia. Anticipate improved control once tubes out. Plan: Remove ant med and rt pleural drains. Remove Vwires. Hydrocortisone 100 mg IV x 1. Colchicine 0.6 mg BID x 2 wks. Start daily diuresis. Cont metoprolol 12.5 mg BID. Cont coumadin 2.5 mg today. Inc activity as tolerated. Wean O2. Tx to PCU. 03/27/18 07:27 Subjective: Better than yest, but still in considerable pain with any activity. Objective: Vital Signs Temp Pulse Resp BP Pulse Ox 37.3 C 99 26 H 124/70 H 92 03/26/18 16:58 03/27/18 06:00 03/27/18 06:00 03/27/18 06:00 03/27/18 06:00 Laboratory Results 03/27/18 05:30 03/27/18 05:30 03/26/18 03/27/18 03/28/18 05:59 05:59 05:59 Intake Total 942.2 3072 Output Total 2035 1220 Balance -1092.8 1852 PT 16.2 SEC (12.0-15.0) H 03/27/18 05:30 INR 1.28 (0.83-1.16) H 03/27/18 05:30 SR/ST with diffuse upsloping STs c/w pericarditis. Positive fluid balance. +6 kg overall. CTOP approaching removal criteria. Labs ok. Plt cont to rise. INR yet to budge. Physical Exam - Physical Exam General Appearance: alert, no apparent distress (meditating) Respiratory: decreased breath sounds (bases), other (blakes x 3 to bulb suction , serosang drainage) Cardiac/Chest: regular rate, rhythm, friction rub, other (Sternotomy and LLE venotomy CDI. Vwires intact.) Abdomen: non-tender, soft Skin: warm/dry Extremities: swelling (1-2+ gen) ICD10 Worksheet Patient Problems: Problems Problem Status Onset Acute blood loss anemia Acute CAD (coronary artery disease) Acute Chest pain Acute Mitral valve regurgitation Acute S/P CABG x 5 Acute S/P mitral valve repair Acute
[2018-03-27] MEDS: SENNOSIDES/DOCUSATE SODIUM TAB PO SCH ×2 (08:31→21:13)
[2018-03-27] MEDS: ASPIRIN 81 MG CHEWABLE TAB PO SCH (08:31)
[2018-03-27] MEDS: METOPROLOL TARTRATE 25 MG TAB PO SCH ×2 (08:32→21:13)
[2018-03-27] MEDS: MUPIROCIN 2% 22 GM OINT NS SCH (08:33)
[2018-03-27] MEDS ORDERED: HYDROCORTISONE 100 MG/2 ML VIAL IVP ONE (08:44)
[2018-03-27] MEDS ORDERED: FUROSEMIDE 20 MG/2 ML VIAL IVP ONE (08:47)
[2018-03-27] MEDS: COLCHICINE 0.6 MG CAP/TAB PO SCH ×2 (09:34→21:13)
[2018-03-27] MEDS: FUROSEMIDE 40 MG/4 ML VIAL IVP SCH ×2 (09:34→15:26)
[2018-03-27] MEDS ORDERED: POTASSIUM CL 20 MEQ TAB PO ONE (12:00)
[2018-03-27] MEDS ORDERED: WARFARIN SODIUM 2.5 MG TAB PO ONE (16:00)
[2018-03-27] MEDS: PANTOPRAZOLE SODIUM 40 MG TAB PO SCH (17:09)
[2018-03-28] MEDS: HYDROCODONE/APAP 5/325 TAB PO PRN ×3 (01:57→23:40)
[2018-03-28 05:28] LABS: PLATELET COUNT 92 10^3/uL (150-400)
[2018-03-28 05:37] LABS: INR 1.86 (0.83-1.16); PROTIME(PATIENT) 21.5 SEC (12.0-15.0)
[2018-03-28] MEDS: HEPARIN 5,000 UNIT/0.5 ML INJ SC SCH (06:26)
--- NOTE | 2018-03-28 07:32 | SOAPPROG ---
SOAP Progress Note Assessment/Plan: Assessment: POD#3 urgent CABG x 5 (ESQUEDA-RI, ABBY-LAD, SV-D1, SV-PLC, SV-PDA), EVH LLE, complex MV repair with a #32 Physio ring NSTEMI/progressive CAD - Patent RCA stent, unsuccessful PCI culprit PDA stenosis. Fully revascularized with CABG. Secondary prevention w ASA, BB, and statin. ISCM - s/p remote inferobasilar TN. LVEF ~50%. Hemodynamically stable early postop course. No vasoactive support. No dysrhythmias. No sig volume overload. Staggered intro of heart failure meds as appropriate. 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 Antithrombotic prophylaxis with Coumadin, target INR 2-3, duration 3 mo. Acute on chronic anemia - Preop H/H . Expected surgical blood loss. No transfusions required. VTE prophylaxis with coumadin. Postoperative pain - Exacerbated by BIMAs, bilat pleural tubes, and probable pericarditis. Postop management with multimodal analgesia. Anticipate improved control once tubes out. Plan: Remove left pleural drain. Cont Colchicine 0.6 mg BID x 2 wks. Cont BID diuresis. Inc metoprolol to 25 mg BID. Decr coumadin to 2 mg today. Lighten narc analgesia. Cont inc activity as tolerated. Baseline postop echo tomorrow. 03/28/18 07:29 Subjective: Feels dopey. Pain not as bad. Moving better. Objective: Vital Signs Temp Pulse Resp BP Pulse Ox 36.8 C 98 20 122/66 H 90 L 03/28/18 04:00 03/28/18 04:00 03/28/18 04:00 03/28/18 04:00 03/28/18 04:00 Laboratory Results 03/28/18 05:15 03/28/18 05:15 03/27/18 03/28/18 03/29/18 05:59 05:59 05:59 Intake Total 3072 1500 Output Total 1220 3800 100 Balance 1852 -2300 -100 PT 21.5 SEC (12.0-15.0) H 03/28/18 05:15 INR 1.86 (0.83-1.16) H 03/28/18 05:15 SR/ST with PACs. Uptrending SBPs. Improving fluid balance. + 3 kg overall. CTOP at removal criteria. Labs as expected. - Pending Discharge Pending Discharge Within 48 Hours: Yes Pending Discharge Date: 03/30/18 Pending Discharge Time: 11:00 Physical Exam - Physical Exam General Appearance: alert, no apparent distress Respiratory: decreased breath sounds (left base), other ([place] to bulb suction, mostly serous drainage) Cardiac/Chest: regular rate, rhythm, friction rub, other (Sternotomy CDI) Abdomen: non-tender, soft Skin: warm/dry Extremities: swelling (1+ dependent), other (LLE venotomy CDI) ICD10 Worksheet Patient Problems: Problems Problem Status Onset Acute blood loss anemia Acute CAD (coronary artery disease) Acute Chest pain Acute Mitral valve regurgitation Acute S/P CABG x 5 Acute S/P mitral valve repair Acute
[2018-03-28] MEDS ORDERED: AMIODARONE HCL 200 ML IV ONE (08:40)
[2018-03-28] MEDS ORDERED: AMIODARONE HCL 100 ML IV ONE (08:40)
[2018-03-28] MEDS: COLCHICINE 0.6 MG CAP/TAB PO SCH (09:04)
[2018-03-28] MEDS: FUROSEMIDE 40 MG/4 ML VIAL IVP SCH (09:06)
[2018-03-28] MEDS: ASPIRIN 81 MG CHEWABLE TAB PO SCH (09:06)
[2018-03-28] MEDS: SENNOSIDES/DOCUSATE SODIUM TAB PO SCH ×2 (09:06→20:07)
[2018-03-28] MEDS: METOPROLOL TARTRATE 25 MG TAB PO SCH ×2 (09:07→20:07)
[2018-03-28] MEDS ORDERED: traMADol 50 MG TAB PO PRN (09:10)
[2018-03-28] MEDS: FOLIC ACID 1 MG TAB PO SCH (09:26)
[2018-03-28] MEDS: GLUCOSAMINE/CHONDROITIN CAP PO SCH (09:26)
[2018-03-28] MEDS: MULTIVITAMINS 1 EACH TAB PO SCH (09:26)
[2018-03-28] MEDS: VITAMIN B COMPLEX 1 EA CAP/TAB PO SCH (09:26)
[2018-03-28] MEDS ORDERED: POTASSIUM CL 20 MEQ TAB PO ONE (12:00)
--- NOTE | 2018-03-28 14:25 | HOSPPROG ---
Hospitalist Progress Note Assessment/Plan: # macrocytic anemia, persistent since about 2016 - B12, folate normal - no further inpatient workup for macrocytosis at this point; follow h/h as needed post-op - continue to follow as an outpatient, consider heme referral # ?DM - A1c pending - will follow up on this Subjective: having a difficult day; asked to see patient regarding his macrocytic anemia Objective: Vital Signs Temp Pulse Resp BP Pulse Ox 36.8 C 81 19 116/65 91 L 03/28/18 12:00 03/28/18 12:00 03/28/18 12:00 03/28/18 12:00 03/28/18 12:00 Laboratory Results 03/28/18 05:15 03/28/18 05:15 03/27/18 03/28/18 03/29/18 05:59 05:59 05:59 Intake Total 3072 1500 Output Total 1220 3800 100 Balance 1852 -2300 -100 PT 21.5 SEC (12.0-15.0) H 03/28/18 05:15 INR 1.86 (0.83-1.16) H 03/28/18 05:15 - Physical Exam Constitutional: uncomfortable Cardiovascular: irregularly irregular, other (rub), No systolic murmur, No diastolic murmur Respiratory: no respiratory distress, no rales or rhonchi, clear to auscultation Gastrointestinal: soft, non-tender abdomen, no palpable masses, No guarding, No rebound ICD10 Worksheet Patient Problems: Problems Problem Status Onset Acute blood loss anemia Acute S/P mitral valve repair Acute Mitral valve regurgitation Acute S/P CABG x 5 Acute CAD (coronary artery disease) Acute Chest pain Acute
[2018-03-28] MEDS ORDERED: AMIODARONE HCL 540 MG in D5W 300 ML IV ONE (15:20)
[2018-03-28] MEDS ORDERED: WARFARIN SODIUM 1 MG TAB PO ONE (16:00)
[2018-03-28] MEDS ORDERED: WARFARIN SODIUM 2 MG TAB PO ONE (16:00)
[2018-03-28] MEDS: PANTOPRAZOLE SODIUM 40 MG TAB PO SCH (17:34)
[2018-03-28] MEDS: ASPIRIN 325 MG TAB PO SCH (20:07)
[2018-03-29] MEDS: HYDROCODONE/APAP 5/325 TAB PO PRN ×3 (04:28→23:17)
[2018-03-29 04:58] LABS: INR 2.38 (0.83-1.16)
--- NOTE | 2018-03-29 06:37 | SOAPPROG ---
SOAP Progress Note Assessment/Plan: POD#4: Urgent CABG x 5 (ESQUEDA-RI, ABBY-LAD, SV-D1, SV-PLC, SV-PDA), EVH LLE, complex MV repair with a #32 Physio ring NSTEMI/progressive CAD - CABGx5. Secondary prevention w ASA, BB, and statin. ISCM - LVEF ~50% - staggered intro of heart failure meds as appropriate. 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 Antithrombotic prophylaxis with Coumadin, target INR 2-3, duration 3 mo. Acute on chronic anemia - no transfusions required. Post-op PAF with RVR - Continue BB/amiodarone for AF prophylaxis. Thromboprophylaxis with Coumadin. DVT prophylaxis - Coumadin/SCDs. Subjective: Start of evening was bad but slept well. Pain better controlled. Denies SOB. Objective: Vital Signs Temp Pulse Resp BP Pulse Ox 36.9 C 87 18 140/70 H 91 L 03/29/18 04:00 03/29/18 04:00 03/29/18 04:00 03/29/18 04:00 03/29/18 04:00 Laboratory Results 03/28/18 05:15 03/29/18 04:30 03/28/18 03/29/18 03/30/18 05:59 05:59 05:59 Intake Total 1500 1350 Output Total 3800 2450 Balance -2300 -1100 PT 26.0 SEC (12.0-15.0) H 03/29/18 04:30 INR 2.38 (0.83-1.16) H 03/29/18 04:30 Physical Exam - Physical Exam General Appearance: WD/WN, alert, no apparent distress EENT: No scleral icterus (R), No scleral icterus (L) Neck: normal inspection Respiratory: No respiratory distress Cardiac/Chest: regular rate, rhythm Abdomen: non-tender, soft, No distended Skin: normal color, warm/dry Extremities: No pedal edema Neuro/Psych: no motor/sensory deficits, alert, normal mood/affect, oriented x 3 ICD10 Worksheet Patient Problems: Problems Problem Status Onset Acute blood loss anemia Acute CAD (coronary artery disease) Acute Chest pain Acute Mitral valve regurgitation Acute S/P CABG x 5 Acute S/P mitral valve repair Acute
[2018-03-29] MEDS ORDERED: MAGNESIUM CITRATE 300 ML BOTTLE PO ONE (07:40)
[2018-03-29] MEDS: FOLIC ACID 1 MG TAB PO SCH (08:28)
[2018-03-29] MEDS: GLUCOSAMINE/CHONDROITIN CAP PO SCH (08:28)
[2018-03-29] MEDS: MULTIVITAMINS 1 EACH TAB PO SCH (08:28)
[2018-03-29] MEDS: SENNOSIDES/DOCUSATE SODIUM TAB PO SCH ×2 (08:28→21:12)
[2018-03-29] MEDS: ASPIRIN 325 MG TAB PO SCH ×2 (08:28→19:15)
[2018-03-29] MEDS: VITAMIN B COMPLEX 1 EA CAP/TAB PO SCH (08:32)
[2018-03-29] MEDS: METOPROLOL TARTRATE 25 MG TAB PO SCH ×2 (08:33→19:14)
[2018-03-29] MEDS ORDERED: AMIODARONE HCL 200 MG TAB PO SCH (09:00)
[2018-03-29] MEDS: OMEGA-3 FATTY ACIDS 1,000 MG CAP PO SCH (10:09)
[2018-03-29] MEDS: ROSUVASTATIN CALCIUM 10 MG TAB PO SCH (10:52)
--- NOTE | 2018-03-29 14:16 | ASMTCMCOM ---
CM Note CM Note Notes: 03/29/2018 Case Management Note Discussed pt during rounds this morning. Pt stated that he checks his INR levels at home through [facility]. [facility] contacts his MD and provides medication dose adjustments. PT is recommending home care. Pt improving daily, case management will wait to set up home care closer to d/c date. Case Management d/c poc: to be determined, anticipating independent. Case Management to follow. Date Signed: 03/29/2018 02:15 PM Electronically Signed By:Talia Moreno RN
--- NOTE | 2018-03-29 15:41 | ECHO ---
[email or web address] [address] Main: [phone] Fax: Transthoracic Echocardiogram Name: SO MARQUEZ MR#: [id number] Study Date: 03/29/2018 Study Time: 01:46 PM Date of : 1955 Age: 63 year(s) Height: 182.9 cm (72 in.) Weight: 90.27 kg (199 lb.) BSA: 2.13 m2 Gender: Male Examination: Echo Indication: BASELINE POST OP ECHO, PERICARDIAL FRICTION RUB, ASSESS FOR PERICARIAL EFFUSION, S/P COMPLEX MV RPR #32 PHYSIO RING Image Quality: Adequate Contrast: Requested by: Ariane Engel BP: 125 mmHg/72 mmHg Heart Rate: Rhythm: Indication: BASELINE POST OP ECHO, PERICARDIAL FRICTION RUB, ASSESS FOR PERICARIAL EFFUSION, S/P COMPLEX MV RPR #32 PHYSIO RING Procedure Staff Sander Setter: Melvi Neal [facility] Reading Physician: Bradley Morales MD Requesting Provider: Conclusions: Normal global systolic LV function. The ejection fraction is visually estimated to be 55 %. There is moderate thickening of the mitral valve leaflets. Moderate mitral annular calcification. Small pericardial effusion. Measurements: Chambers Valvular Assessment AV/MV Valvular Assessment TV/PV Normal Normal Normal Name Value Range Name Value Range Name Value Range IVSd (2D): 1.1 cm (0.6 cm-1.1 cm) LVDd (2D): 5.0 cm (4.2 cm-5.9 cm) LVPWd (2D): 1.1 cm (0.6 cm-1 cm) Visual EF: 55 % Continued Measurements: Chambers Name Value RA Area: 17.2 cm2 Patient: SO MARQUEZ Study Date: 03/29/2018 Page 1 of 2 01:46 PM Findings: Left Ventricle: Normal size left ventricle. No LV hypertrophy. Normal global systolic LV function. The ejection fraction is visually estimated to be 55 %. No regional wall motion abnormality. Unable to assess diastolic dysfunction. Right Ventricle: Normal size right ventricle. Normal RV function. Left Atrium: The left atrium is normal in size. Right Atrium: The right atrium is normal in size. Mitral Valve: There is moderate thickening of the mitral valve leaflets. Moderate mitral annular calcification. Aortic Valve: The aortic valve is normal in appearance and function. Tricuspid Valve: The tricuspid valve is normal in appearance and function. Pulmonic Valve: The pulmonic valve is normal in appearance and function. Aorta: The aorta is normal. Pericardium: Small pericardial effusion. (No Signature Object) Patient: SO MARQUEZ Study Date: 03/29/2018 Page 2 of 2 01:46 PM [id number]
[2018-03-29] MEDS ORDERED: WARFARIN SODIUM 1 MG TAB PO ONE (16:00)
--- NOTE | 2018-03-29 17:06 | HOSPPROG ---
Hospitalist Progress Note Assessment/Plan: Chart reviewed - patient not seen. A1c still pending - I called the lab and they mistakenly had not run the A1c. They will run now and I will follow up. # macrocytic anemia, persistent since about 2016 - B12, folate normal - no further inpatient workup for macrocytosis at this point; follow h/h as needed post-op - continue to follow as an outpatient, consider heme referral # ?DM - A1c pending - will follow up on this Objective: Vital Signs Temp Pulse Resp BP Pulse Ox 36.9 C 88 18 120/70 92 03/29/18 15:04 03/29/18 15:04 03/29/18 15:04 03/29/18 15:04 03/29/18 15:04 Laboratory Results 03/28/18 05:15 03/29/18 04:30 03/28/18 03/29/18 03/30/18 05:59 05:59 05:59 Intake Total 1500 1350 236 Output Total 3800 2450 Balance -2300 -1100 236 PT 26.0 SEC (12.0-15.0) H 03/29/18 04:30 INR 2.38 (0.83-1.16) H 03/29/18 04:30 ICD10 Worksheet Patient Problems: Problems Problem Status Onset Acute blood loss anemia Acute S/P mitral valve repair Acute Mitral valve regurgitation Acute S/P CABG x 5 Acute CAD (coronary artery disease) Acute Chest pain Acute
[2018-03-29] MEDS: PANTOPRAZOLE SODIUM 40 MG TAB PO SCH (17:22)
[2018-03-30] MEDS: HYDROCODONE/APAP 5/325 TAB PO PRN (04:15)
[2018-03-30 04:40] LABS: INR 1.79 (0.83-1.16); PROTIME(PATIENT) 20.9 SEC (12.0-15.0)
[2018-03-30 05:06] LABS: PLATELET COUNT 124 10^3/uL (150-400)
--- NOTE | 2018-03-30 07:37 | SOAPPROG ---
SOAP Progress Note Assessment/Plan: POD#5: Urgent CABG x 5 (ESQUEDA-RI, ABBY-LAD, SV-D1, SV-PLC, SV-PDA), EVH LLE, complex MV repair with a #32 Physio ring NSTEMI/progressive CAD - CABGx5. Secondary prevention w ASA, BB, and statin. ISCM - LVEF ~50% - staggered intro of heart failure meds as appropriate. 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 Antithrombotic prophylaxis with Coumadin, target INR 2-3, duration 3 mo. Acute on chronic anemia - no transfusions required. Post-op PAF with RVR - Continue BB/amiodarone for AF prophylaxis. Thromboprophylaxis with Coumadin. DVT prophylaxis - Coumadin/SCDs. Disposition - home today without services. Subjective: Feels well. Denies weakness/pain/SOB. Objective: Vital Signs Temp Pulse Resp BP Pulse Ox 36.8 C 86 15 111/71 90 L 03/29/18 23:05 03/30/18 04:17 03/30/18 04:17 03/30/18 04:17 03/30/18 04:17 Laboratory Results 03/30/18 04:15 03/29/18 04:30 03/29/18 03/30/18 03/31/18 05:59 05:59 05:59 Intake Total 1350 1036 Output Total 2450 650 Balance -1100 386 PT 20.9 SEC (12.0-15.0) H 03/30/18 04:15 INR 1.79 (0.83-1.16) H 03/30/18 04:15 Physical Exam - Physical Exam General Appearance: WD/WN, alert, no apparent distress EENT: No scleral icterus (R), No scleral icterus (L) Neck: normal inspection Respiratory: No respiratory distress Cardiac/Chest: regular rate, rhythm Abdomen: non-tender, soft, No distended Skin: normal color, warm/dry Extremities: pedal edema Neuro/Psych: no motor/sensory deficits, alert, normal mood/affect, oriented x 3 ICD10 Worksheet Patient Problems: Problems Problem Status Onset Acute blood loss anemia Acute CAD (coronary artery disease) Acute Chest pain Acute Mitral valve regurgitation Acute S/P CABG x 5 Acute S/P mitral valve repair Acute
[2018-03-30 07:43] VITALS: BP 109/71
--- NOTE | 2018-03-30 07:47 | PDHOMEO2F ---
Home Oxygen Face to Face Home Orders: I certify that a physician or a nurse practitioner or physician's pharmaceutical assistant has had a acry-dy-enma encounter with this patient on the date of this order due to the diagnosis listed, which relates to the primary reason the patient requires home oxygen. Alternative treatments have been tried, or considered, and deemed ineffective. It is anticipated that supplemental oxygen will result in improvement with treatment. Home oxygen qualifying diagnosis: atlectasis, hypoxemia, SOB, mitral insufficiency, CAD, s/p CABG/MV repair SpO2 on room air (%): 85 Frequency of home oxygen needed: continuous Home oxygen liters per minute: 3 Home oxygen delivery device: mask Concentrator: Yes E-tanks for mobility and back up: Yes If ordering portable O2, is the patient mobile in the home?: Yes I certify that, based on these findings, the home oxygen is medically necessary for this patient for the following length of time. Length of time home oxygen needed: 1 month
[2018-03-30] MEDS: SENNOSIDES/DOCUSATE SODIUM TAB PO SCH (09:00)
[2018-03-30] MEDS ORDERED: FUROSEMIDE 20 MG TAB PO SCH (09:00)
[2018-03-30] MEDS: VITAMIN B COMPLEX 1 EA CAP/TAB PO SCH (09:04)
[2018-03-30] MEDS: GLUCOSAMINE/CHONDROITIN CAP PO SCH (09:04)
[2018-03-30] MEDS: OMEGA-3 FATTY ACIDS 1,000 MG CAP PO SCH (09:04)
[2018-03-30] MEDS: ASPIRIN 325 MG TAB PO SCH (09:04)
[2018-03-30] MEDS: METOPROLOL TARTRATE 25 MG TAB PO SCH (09:05)
[2018-03-30] MEDS: FOLIC ACID 1 MG TAB PO SCH (09:05)
[2018-03-30] MEDS: ROSUVASTATIN CALCIUM 10 MG TAB PO SCH (09:05)
[2018-03-30] MEDS: MULTIVITAMINS 1 EACH TAB PO SCH (09:05)
--- NOTE | 2018-03-30 09:51 | PDDCSUM ---
Discharge Summary Discharge Summary: ADMISSION DATE: 03/23/18 DISCHARGE DATE: 03/30/18 DISCHARGE DIAGNOSES 1. CAD 2. MR 3. Acute blood loss anemia 4. Post-op atrial fibrillation with RVR 5. Pericarditis PROCEDURES 03/18/18, Hunter Carlisle: 1. Urgent CABGx5 (ESQUEDA-RI, ABBY-LAD, SV-D1, SV-PLC, SV-PDA) 2. Complex MV repair with #32 Physio ring 3. EVH left leg 4. [facility]RSE BY PROBLEM LIST 1. CAD - s/p CABGx5. Secondary prevention with ASA, beta-lizzie, and statin. 2. MR - s/p complex repair. Thromboprophylaxis with Coumadin, INR goal 2-3, duration 3 months. 3. Acute blood loss anemia - no transfusions necessary. 4. Post-op atrial fibrillation with RVR - conversion to SR with beta-lizzie. Thromboprophylaxis as per MVR. 5. Pericarditis - friction rub auscultated on PE. High dose ASA prescribed for 2 weeks. CONDITION Good DISPOSITION Home, self care ACTIVITY Pt was instructed on sternal precautions, activity limitations, and which problems to call [facility] with. Please see Discharge Plan in chart for specifics. DISCHARGE MEDICATIONS Continue: Rosuvastatin Calcium [Crestor] 5 mg PO DAILY Dextroamphetamine/Amphetamine [Adderall Xr 25 mg Capsule] 25 mg PO DAILY Diazepam [Valium 10 MG (*)] 5 - 10 mg PO HS PRN Herbals/Supplements -Info Only 1 ea PO DAILY Multivitamins [Multivitamin (*)] 1 each PO DAILY Omeprazole 40 mg PO DAILY18 Testosterone IM [Testosterone 100mg/ml IM inj (*)] 4 ml IM MO Carboxymethylcellulose 1% [Refresh Celluvisc (*)] 1 drop EACHEYE DAILY PRN Folic Acid [Folic Acid 1 MG (*)] 1 mg PO DAILY Glucosamine/Chondroitin [Glucosamine/Chondroitin (*)] 1 each PO DAILY [place]-3 Fatty Acids [Fish Oil 1000 mg (*)] 1,000 mg PO DAILY Vitamin B Complex [Vitamin B Complex (OTC)] 1 each PO DAILY New: Acetaminophen [Tylenol 325mg (*)] 325 - 650 mg PO Q4HRS PRN Aspirin [Aspirin 325 mg (*)] 650 mg PO BID 14 Days Furosemide [Lasix 20 MG (*)] 20 mg PO DAILY 30 Days Hydrocodone/APAP 5/325 [[place] 5/325 (*)] 1 - 2 tab PO Q4HRS PRN Metoprolol Tartrate [Lopressor 25 mg (*)] 37.5 mg PO BID Warfarin Sodium [Coumadin 5MG (*)] 5 mg PO DAILY AT 4PM Stop: Alyson Alemiladis ASA 81 mg (continue after stopping high-dose ASA - 2 weeks) PENDING STUDIES/LABS 1. CXR prior to surgical follow-up 2. INR/Coumadin mgmt as per Coumadin Clinic FOLLOW-UP 1. Hunter Carlisle, 04/06/18, 11:45 AM
[2018-03-30] MEDS ORDERED: WARFARIN SODIUM 5 MG TAB PO ONE (16:00)
[2018-03-30] MEDS ORDERED: WARFARIN SODIUM 5 MG TAB PO SCH (16:00)
== END 2018-03-30 12:18 | disposition home or self-care (01) | DRG 217 ==
LOC: CED 09:29 → CEDHOLD 10:32 → OBSVTOIN 10:32 → F2W 12:28 → F2N 03-25 06:29 → F2W 03-27 11:10
PROVIDERS: ADMIT Internal Medicine; ATTEND Thoracic Surgery (Cardiothoracic Vascular Surgery)
PROC: 4A023N7 Measurement of Cardiac Sampling and Pressure, Left Heart, Percutaneous Approach (ICD-10-PCS; 2018-03-24)
PROC: B2151ZZ Fluoroscopy of Left Heart using Low Osmolar Contrast (ICD-10-PCS; 2018-03-24)
PROC: B2111ZZ Fluoroscopy of Multiple Coronary Arteries using Low Osmolar Contrast (ICD-10-PCS; 2018-03-24)
PROC: 5A1221Z Performance of Cardiac Output, Continuous (ICD-10-PCS; principal; 2018-03-25 07:15)
PROC: 02100Z9 Bypass Coronary Artery, One Artery from Left Internal Mammary, Open Approach (ICD-10-PCS; principal; 2018-03-25 07:15)
PROC: 02UG0JZ Supplement Mitral Valve with Synthetic Substitute, Open Approach (ICD-10-PCS; principal; 2018-03-25 07:15)
PROC: 06BQ4ZZ Excision of Left Saphenous Vein, Percutaneous Endoscopic Approach (ICD-10-PCS; principal; 2018-03-25 07:15)
PROC: 021209W Bypass Coronary Artery, Three Arteries from Aorta with Autologous Venous Tissue, Open Approach (ICD-10-PCS; principal; 2018-03-25 07:15)
PROC: 02100Z8 Bypass Coronary Artery, One Artery from Right Internal Mammary, Open Approach (ICD-10-PCS; principal; 2018-03-25 07:15)
PROC: 02L70CK Occlusion of Left Atrial Appendage with Extraluminal Device, Open Approach (ICD-10-PCS; principal; 2018-03-25 07:15)
DX: I21.4 Non-ST elevation (NSTEMI) myocardial infarction (principal); D62 Acute posthemorrhagic anemia; I31.9 Disease of pericardium, unspecified; I25.110 Atherosclerotic heart disease of native coronary artery with unstable angina pectoris; I34.0 Nonrheumatic mitral (valve) insufficiency; I34.1 Nonrheumatic mitral (valve) prolapse; I48.91 Unspecified atrial fibrillation; F41.9 Anxiety disorder, unspecified; N52.9 Male erectile dysfunction, unspecified; I25.2 Old myocardial infarction; Z95.5 Presence of coronary angioplasty implant and graft; Z87.891 Personal history of nicotine dependence
CPT/HCPCS: 80048-PO; 82435-PO; 82565-PO; 82607-90; 82947-PO; 82947-QW; 84132-PO; 84295-PO; 84484-PO; 84520-PO; 85014-PO; 85025-PO; 96374; 97116-GP; 97162-GP; 97165-GO; 97530-GO; 97530-GP; 97535-GO; C1769; C1887; G0378; G8978-GP-CL; G8979-GP-CJ; G8980-GP-CI; G8987-GO-CK; G8988-GO-CJ; J0153; J0282; J0690; J1170; J1265; J1644; J1720; J1815; J1885; J1940; J2001; J2060; J2150; J2250; J2260; J2270; J2370; J2405; J2440; J2704; J2720; J2765; J2930; J3010; J3475; J3480; J7060; P9041; Q9967

== ENCOUNTER → 2018-04-02 | Outpatient (CLI) | payer OTHER, MEDICAID | LOC: CIMAGING 15:12 | PROVIDERS: ATTEND Thoracic Surgery (Cardiothoracic Vascular Surgery) | DX: Z09 Encounter for follow-up examination after completed treatment for conditions other than malignant neoplasm (principal); J98.11 Atelectasis; J90 Pleural effusion, not elsewhere classified; Z95.1 Presence of aortocoronary bypass graft; Z98.890 Other specified postprocedural states | CPT/HCPCS: 71046-PO ==

== ENCOUNTER → 2018-11-23 | Outpatient (CLI) | payer OTHER, MEDICAID | LOC: FIMAGING 19:02 | PROVIDERS: ATTEND Orthopaedic Surgery Hand Surgery | DX: M75.121 Complete rotator cuff tear or rupture of right shoulder, not specified as traumatic (principal); M75.81 Other shoulder lesions, right shoulder; M75.21 Bicipital tendinitis, right shoulder; M19.011 Primary osteoarthritis, right shoulder ==